=== PATIENT | male | born 1990 | race Two or more races ===

== ENCOUNTER 2021-04-13 22:44 | Emergency (ER) | payer MEDICAID, SELFPAY ==
[~2021-04-13] VITALS: Ht 175.3 cm; Wt 72.7 kg
[2021-04-13] MEDS ORDERED: DIPH,PERTUSS(ACELL),TET VAC/PF 0.5 ML IM-VACC ONE ×2 (23:00→23:57)
[2021-04-13] MEDS ORDERED: LIDOCAINE 1%, 10ML INFIL ONE (23:00)
--- NOTE | 2021-04-13 23:09 | NUR ---
PATIENT STATES HE WAS RIDDING HIS SKATE BOARD WHEN HE FELL AND HIT THE BACK OF HIS HEAD. POS LOC, PATIENT DENIES WEARING HELMET.
[2021-04-13 23:17] VITALS: BP 102/76
[2021-04-13] MEDS ORDERED: ONDANSETRON 2MG/ML, 2ML ONE (23:56)
[2021-04-13] MEDS ORDERED: MORPHINE SULFATE 4 MG/ML, 1ML ONE (23:56)
[2021-04-14] MEDS ORDERED: CEFAZOLIN PMX 1GM/50ML 50 ML ONE (00:24)
[2021-04-14] MEDS ORDERED: PLEASE ENTER ALLERGIES MC SCH (00:30)
[2021-04-14] MEDS ORDERED: CEFAZOLIN 1,000 MG in SODIUM CHLORIDE 0.9% 50 ML IV ONE (00:30)
[2021-04-14] MEDS ORDERED: VANCOMYCIN PER PHARMACY MC PRN (00:30)
[2021-04-14] MEDS ORDERED: LEVETIRACETAM 1,000 MG in SODIUM CHLORIDE 0.9% 100 ML IV ONE (00:30)
[2021-04-14] MEDS ORDERED: PHARMACOKINETIC CONSULTATION MC ONE (00:30)
[2021-04-14] MEDS ORDERED: PROMETHAZINE 25 MG/ML, 1ML ONE (00:35)
[2021-04-14 00:43] LABS: BASOPHILS % (AUTO) 1 % (0-1); EOSINOPHILS % (AUTO) 0 % (1-7); LYMPHOCYTES % (AUTO) 9 % (22-44); MEAN CORPUSCULAR HEMOGLOBIN 31.5 pg (27.5-34.5); MEAN CORPUSCULAR HGB CONC 33.7 g/dL (33.2-36.2); MEAN PLATELET VOLUME 8.1 fL (7.4-10.4); MONOCYTES % (AUTO) 7 % (2-9); NEUTROPHILS % (AUTO) 84 % (42-75); PLATELET COUNT 226 x10^3/uL (130-400); RED BLOOD COUNT 4.57 x10^6/uL (4.38-5.82); RED CELL DISTRIBUTION WIDTH 13.4 % (9.4-14.8)
[2021-04-14 00:54] LABS: ALANINE AMINOTRANSFERASE 28 U/L (12-78); ALBUMIN 4.1 g/dL (3.4-5.0); ANION GAP 7 mmol/L (5-15); CALCIUM 8.3 mg/dL (8.5-10.1); CHLORIDE 104 mmol/L (98-107); CREATININE 0.86 mg/dL (0.7-1.3)
--- NOTE | 2021-04-14 00:54 | NUR ---
throughput rn: pt emergently transferred to [facility] ed via [facility] at this time. accepting ERP at [facility] is Sadi. report from amadou to [facility] ed charge loader.
[2021-04-14 00:56] LABS: ALKALINE PHOSPHATASE 77 U/L (45-117); BILIRUBIN,TOTAL 0.4 mg/dL (0.2-1.0); TOTAL PROTEIN 7.5 g/dL (6.4-8.2)
--- NOTE | 2021-04-14 00:57 | NUR ---
Patient transfered to [facility] ED via EMS. Patient vomited 2x prior to transfer, medicated per mar. Patient becomes nauseated when sat up on [facility] for procedures. Second IV established, keppra started. Report given to EMS reguarding patient's condition. Patient transfered from hospital [facility] to EMS [facility] with not difficulty.
[2021-04-14 00:58] LABS: INTERNATIONAL NORMALIZED RATIO 1.14 (0.93-1.1); PROTHROMBIN TIME 12.1 Seconds (9.6-11.5)
--- NOTE | 2021-04-14 00:58 | NUR ---
Preceptor RN: Vancomycin held at this time due to patient transfer to [facility].
[2021-04-14 01:00] LABS: PARTIAL THROMBOPLASTIN TIME < 23 Seconds (25-31)
[2021-04-14] MEDS ORDERED: VANCOMYCIN 1,800 MG in SODIUM CHLORIDE 0.9% 250 ML IV ONE (01:00)
== END 2021-04-14 01:14 | disposition short-term general hospital (02) ==
LOC: ED 23:26
DX: S06.341A Traumatic hemorrhage of right cerebrum with loss of consciousness of 30 minutes or less, initial encounter (principal); S02.119B Unspecified fracture of occiput, initial encounter for open fracture; W01.0XXA Fall on same level from slipping, tripping and stumbling without subsequent striking against object, initial encounter; Y93.79 Activity, other specified sports and athletics; Y92.410 Unspecified street and highway as the place of occurrence of the external cause; Y99.8 Other external cause status
CPT/HCPCS: 36415; 70450; 70486; 80053; 80320; 85025; 85610; 85730; 90471; 90715; 96365; 96368; 99291; J0690; J1953; 99285; G0480